=== PATIENT | female | born 1990 | race Hispanic/Latino ===

== ENCOUNTER 2020-07-12 17:30 | Emergency (ER) | payer MEDICAID | END 2020-07-12 18:42 | disposition home or self-care (01) | LOC: EDH 17:30 | DX: Z04.1 Encounter for examination and observation following transport accident (principal); F41.1 Generalized anxiety disorder; V49.59XA Passenger injured in collision with other motor vehicles in traffic accident, initial encounter; Y93.89 Activity, other specified; Y92.89 Other specified places as the place of occurrence of the external cause; Y99.8 Other external cause status ==